=== PATIENT | male | born 1960 | race Caucasian/White ===

== ENCOUNTER 2018-01-05 11:59 | Emergency (ER) | payer MEDICAID, OTHER ==
[2018-01-05 12:11] VITALS: BP 138/81
--- NOTE | 2018-01-05 13:58 | XRay Report ---
AP ABDOMEN: HISTORY: Swallowed tooth. The abdominal gas pattern is unremarkable. No masses or organomegaly is identified and there is no gross evidence of free air or fluid. No significant soft tissue calcifications are noted. There is a curvilinear density in the right lower quadrant overlying the right iliac bone. The etiology of this is unclear. It does not necessarily resemble a tooth. Please correlate with the image. IMPRESSION: Unremarkable abdomen. Right lower quadrant density as described.
--- NOTE | 2018-01-05 13:59 | XRay Report ---
AP CHEST: HISTORY: Swallowed tooth No radiopaque foreign body is identified in the chest. There is an ill-defined 2.5 cm density in the right upper lobe concerning for mass or nodule. The lungs are mildly hyperinflated but clear otherwise. Normal heart and mediastinal structures. IMPRESSION: 2.5 cm right upper lobe density/mass. Further evaluation with CT chest with contrast is recommended.
--- NOTE | 2018-01-05 15:07 | Emergency Department Report ---
- General Chief complaint: Skin/Abscess/Foreign Body Stated complaint: swolled tooth Time Seen by Provider: 01/05/18 13:29 Source: patient Mode of arrival: Ambulatory Limitations: No Limitations - History of Present Illness Initial comments: This is a 57-year-old male here report that he swallowed a false tooth. He denies any abdominal or back pain. Denies vomiting. Denies any shortness of breath or chest pain. Denies any nausea or vomiting. Pain is 0 out of 10. MD complaint: foreign body -: This morning Tetanus Up to Date: yes Severity scale (0 -10): 0 Associated symptoms: denies other symptoms Treatments Prior to Arrival: none - Related Data Home Medications Medication Instructions Recorded Confirmed Last Taken No Known Home Medications [No 05/17/13 05/17/13 Unknown Reported Home Medications] Allergies Allergy/AdvReac Type Severity Reaction Status Date / Time No Known Allergies Allergy Verified 05/17/13 09:04 Abscess Boil HPI - [facility] Chief Complaint: Skin/Abscess/Foreign Body Stated Complaint: swolled tooth Time Seen by Provider: 01/05/18 13:29 Home Medications: Home Medications Medication Instructions Recorded Confirmed Last Taken No Known Home Medications [No 05/17/13 05/17/13 Unknown Reported Home Medications] Allergies/Adverse Reactions: Allergies Allergy/AdvReac Type Severity Reaction Status Date / Time No Known Allergies Allergy Verified 05/17/13 09:04 ED Review of Systems ROS: Stated complaint: swolled tooth Other details as noted in HPI Constitutional: denies: chills, fever Eyes: denies: eye pain ENT: denies: ear pain, throat pain, congestion Respiratory: denies: cough, shortness of breath, SOB with exertion, SOB at rest , wheezing Cardiovascular: denies: chest pain, palpitations, edema, syncope Gastrointestinal: denies: abdominal pain, nausea, vomiting, diarrhea, constipation, hematemesis, melena, hematochezia Genitourinary: denies: urgency, dysuria Musculoskeletal: denies: back pain, joint swelling, arthralgia, myalgia Skin: denies: rash, lesions Neurological: denies: headache Psychiatric: denies: anxiety, depression ED Past Medical Hx - Past Medical History Previous Medical History?: Yes Hx Liver Disease: Yes Additional medical history: Abnormal lung findings-patient cannot elaborate - Surgical History Past Surgical History?: No - Family History Family history: hypertension - Social History Smoking Status: Current Every Day Smoker Substance Use Type: Alcohol - Medications Home Medications: Home Medications Medication Instructions Recorded Confirmed Last Taken Type No Known Home Medications [No 05/17/13 05/17/13 Unknown History Reported Home Medications] ED Physical Exam - General Limitations: No Limitations General appearance: alert, in no apparent distress - Head Head exam: Present: atraumatic, normocephalic, normal inspection - Eye Eye exam: Present: normal appearance, PERRL, EOMI Pupils: Present: normal accommodation - ENT ENT exam: Present: normal exam, normal orophraynx, mucous membranes moist, TM's normal bilaterally, normal external ear exam, other (the midline and oral airways patent) - Neck Neck exam: Present: normal inspection, full ROM, other (no C-spine tenderness or tracheal deviation). Absent: tenderness, lymphadenopathy - Respiratory Respiratory exam: Present: normal lung sounds bilaterally. Absent: respiratory distress, chest wall tenderness - Cardiovascular Cardiovascular Exam: Present: regular rate, normal rhythm, normal heart sounds. Absent: systolic murmur, diastolic murmur - GI/Abdominal GI/Abdominal exam: Present: soft, normal bowel sounds. Absent: distended, tenderness, guarding, rebound, rigid, organomegaly, mass, bruit, pulsatile mass , hernia - Rectal Rectal exam: Present: deferred - Extremities Exam Extremities exam: Present: normal inspection, full ROM, normal capillary refill , other (no clubbing, cyanosis or edema. +2 pulses to all extremities). Absent : tenderness, pedal edema, joint swelling, calf tenderness - Back Exam Back exam: Present: normal inspection, full ROM, other (ambulates without any difficulties). Absent: tenderness, CVA tenderness (R), CVA tenderness (L), muscle spasm, paraspinal tenderness, vertebral tenderness, rash noted - Neurological Exam Neurological exam: Present: alert, oriented X3, normal gait - Psychiatric Psychiatric exam: Present: normal affect, normal mood - Skin Skin exam: Present: warm, dry, intact, normal color. Absent: rash ED Course Vital Signs 01/05/18 12:06 Temperature 98.5 F Pulse Rate 74 Respiratory 16 Rate Blood Pressure 138/81 O2 Sat by Pulse 100 Oximetry - Reevaluation(s) Reevaluation #1: 01/05/18 16:02 Stable throughout ED stay Reevaluation #2: 01/05/18 16:23 I discussed the patient is chest x-ray findings and patient said that he had previous x-ray in the past and he told him that he needs to follow up with a lung doctor but he had not. He is aware of x-ray findings for pulmonary nodule to right upper lobe. I also discussed findings for foreign body to abdomen. Patient said it was a false tooth that was white that had a full on the tooth. X-ray shows small focal like foreign body in colon but no tooth seen. Suspect because tooth is white in color. Reevaluation #3: 01/05/18 16:47 Spoke with patient regarding his abnormal x-ray and also abdominal x-ray findings. ED Medical Decision Making - Radiology Data Radiology results: report reviewed Patient: DAVIAN EPPS MR#: [id number] : 1960 Acct:[id number] Age/Sex: 57 / M ADM Date: 01/05/18 Loc: ED Attending Dr: Ordering Physician: AMELIA LOVE Date of Service: 01/05/18 Procedure(s): XR abdomen 1V ap Accession Number(s): [id number] cc: AMELIA LOVE Fluoro Time In Minutes: AP ABDOMEN: HISTORY: Swallowed tooth. The abdominal gas pattern is unremarkable. No masses or organomegaly is identified and there is no gross evidence of free air or fluid. No significant soft tissue calcifications are noted. There is a curvilinear density in the right lower quadrant overlying the right iliac bone. The etiology of this is unclear. It does not necessarily resemble a tooth. Please correlate with the image. IMPRESSION: Unremarkable abdomen. Right lower quadrant density as described. Transcribed By: TTR Dictated By: SOFIE GLEASON JR, MD Electronically Authenticated By: SOFIE GLEASON JR, MD Signed Date/Time: 01/05/18 1335 DD/ 1334 TD/TT: 01/05/18 1335 Patient: DAVIAN EPPS MR#: [id number] : 1960 Acct:[id number] Age/Sex: 57 / M ADM Date: 01/05/18 Loc: ED Attending Dr: Ordering Physician: AMELIA LOVE Date of Service: 01/05/18 Procedure(s): XR chest 1V ap Accession Number(s): [id number] cc: AMELIA LOVE Fluoro Time In Minutes: AP CHEST: HISTORY: Swallowed tooth No radiopaque foreign body is identified in the chest. There is an ill-defined 2.5 cm density in the right upper lobe concerning for mass or nodule. The lungs are mildly hyperinflated but clear otherwise. Normal heart and mediastinal structures. IMPRESSION: 2.5 cm right upper lobe density/mass. Further evaluation with CT chest with contrast is recommended. Transcribed By: TTR Dictated By: SOFIE GLEASON JR, MD Electronically Authenticated By: SOFIE GLEASON JR, MD Signed Date/Time: 01/05/181335 DD/ 34 TD/TT: 01/05/181335 - Medical Decision Making This is a 57-year-old male here report that he swallowed a false tooth and easier to be examined. Patient is not having any abdominal or back pain. He does not have any nausea or vomiting. Denies any blood in his sputum or blood in his stool. This happened today per patient's. I saw and examined patient and abdominal, back, mouth and chest exam is normal. X-ray 2 view abdomen and two-view chest done and dictated by radiologist. Reports reviewed by myself. I discussed x-ray report with patient and also abdominal x-ray. He voiced understanding. He also understands that he needs to follow-up with pulmonary doctor regarding abnormal findings on x-ray for right pulmonary nodule. I discussed with him that he needs to increase his fluid intake and eat foods high in fiber to help flush foreign body out of his colon. He voiced understanding. Educated patient on diagnosis, treatment plan and need to follow-up with pulmonary doctor regarding in abnormal x-ray findings for nodule to right lung field. I also discussed them that there is a radiopaque object in his right colon and he will need to monitor his stool to see if he has any bleeding in his stool or fevers vomiting blood to return to the emergency room KARLOS otherwise to follow up with optical instrument specialist. I encouraged him to eat high fiber food and drink plenty of water. He voiced understanding and Patient with ingestion of foreign body-seen on x-ray of the abdomen 2 view and large intestine. Pt encouraged to eat a high-fiber food and to return to the emergency room if he has any bleeding from his rectum or vomiting. Urged to follow optical instrument specialist. 2: I pulmonary nodule -encouraged to follow up with process automation engineer patient already aware that he had that but he just didn't follow up encouraged smoking cessation.- Pt discharged home in stable condition. Vital signs are stable with a febrile. He is to follow-up with yesterday urologist, process automation engineer and his primary care physician which she does have . Critical care attestation.: If time is entered above; I have spent that time in minutes in the direct care of this critically ill patient, excluding procedure time. ED Disposition Clinical Impression: Pulmonary nodule Ingestion of foreign body Qualifiers: Encounter type: initial encounter Qualified Code(s): T18.9XXA - Foreign body of alimentary tract, part unspecified, initial encounter Disposition: DC- TO HOME OR SELFCARE Is pt being admited?: No Does the pt Need Aspirin: No Condition: Stable Instructions: Foreign Body Ingestion (ED), Pulmonary Nodules (ED) Additional Instructions: Alana muniz lng xem h??ng d?n x? ?? gi?i thi?u ??n bc s? ph?i v m?t s? bc s?. Xem bc s? ch?m sc chnh c?a b?n nikkie 2 ngy T?ng l??ng ch?t l?ng c?a b?n v c?ng c ch?t x? ?? kala g?m posada?i, to. ng c?ng c th? u?ng n??c m?n ?m ?? gip t?o ?i?u ki?n terrance?n ??ng c?a c? th? n? ?c ngoi ra m?t vi trng. Hy ng?ng ht farnaz?c. X tonja c?a b?n cho th?y b?n c t?n th??ng b?t th??ng ? ph?i ph?i v b?n c?n elisa di bc s? ph?i ?? ?nh gi v ?i?u tr? thm N?u b?n pht tri?n ch?y mu tr?c trng ho?c ch?y mu t? s? ti?n, t?ng ?au b?ng, tr? l?i phng c?p c?u cng s?m cng t?t Please see discharge instruction for referral to lung doctor and somewhat doctor. See Your primary care physician in 2 days Increase your fluid intake and also fiber to include bananas, apples. He can also drink warm prune juice to help to facilitate movement of foreign body out a few colon. Please stop smoking. Your x-ray shows that you have abnormal lesion in your right lung and you need to follow up with a lung doctor for further evaluation and treatment If you develop rectal bleeding or bleeding from the amounts, increase in abdominal pain, return to the emergency room [facility]OS Referrals: PRIMARY MD GAURI [Primary Care Provider] - 01/07/18 [facility] [Provider Group] - 01/07/18 ARYA WILLIS MD [Staff Physician] - 01/07/18 Forms: Work/School Release Form(ED), Accompanied Note
== END 2018-01-05 17:18 | disposition home or self-care (01) ==
LOC: ED 11:59
DX: T18.9XXA Foreign body of alimentary tract, part unspecified, initial encounter (principal); R91.1 Solitary pulmonary nodule; F17.200 Nicotine dependence, unspecified, uncomplicated; X58.XXXA Exposure to other specified factors, initial encounter; Y93.89 Activity, other specified; Y92.89 Other specified places as the place of occurrence of the external cause; Y99.8 Other external cause status
CPT/HCPCS: 71045; 74018; 99283

== ENCOUNTER 2018-02-08 08:32 | Day surgery (SDC) | payer OTHER ==
[2018-02-08 09:52] LABS: Basophils % (Auto) 0.4 % (0.0-1.8); Eosinophils # (Auto) 0.2 K/mm3 (0.0-0.4); Eosinophils % (Auto) 2.7 % (0.0-4.3); Hematocrit 42.9 % (35.5-45.6); Hemoglobin 14.5 gm/dl (11.8-15.2); Lymphocytes # (Auto) 1.7 K/mm3 (1.2-5.4); Lymphocytes % (Auto) 25.5 % (13.4-35.0); Mean Corpuscular HGB Conc 34 % (32-34); Mean Corpuscular Hemoglobin 31 pg (28-32); Mean Corpuscular Volume 93 fl (84-94); Monocytes # (Auto) 0.7 K/mm3 (0.0-0.8); Monocytes % (Auto) 9.9 % (0.0-7.3); Platelet Count 203 K/mm3 (140-440); Red Blood Count 4.61 M/mm3 (3.65-5.03)
[2018-02-08 10:07] LABS: Alanine Aminotransferase 24 units/L (7-56); Albumin 4.1 g/dL (3.9-5); BUN/Creatinine Ratio 23; Blood Urea Nitrogen 14 mg/dL (9-20); Calcium 8.9 mg/dL (8.4-10.2); Hemolysis Index 9
[2018-02-08 10:39] LABS: INR 0.88 (0.87-1.13)
[2018-02-08] MEDS ORDERED: VERSED IV ONE (11:00)
[2018-02-08] MEDS ORDERED: SUBLIMAZE IV ONE (11:00)
[2018-02-08] MEDS ORDERED: XYLOCAINE 1% 20 mL ONE (11:17)
--- NOTE | 2018-02-08 13:27 | Cat Scan Report ---
CT BIOPSY LUNG RIGHT History: Right lung mass. Description of procedure: Informed consent was obtained. Sterile technique was utilized. 1% lidocaine for skin anesthesia. Moderate sedation was accomplished with Versed and fentanyl. The patient was sedated for 15 minutes. Independent cardiorespiratory monitoring by RN. Intraobserver time of [address] guidance, a 19-gauge introducer needle was in to the leading edge of a 1.9 cm mass in the posterior right upper lobe. 4 separate 2.2 cm 20-gauge core biopsies were obtained. The samples were deemed adequate by the pathologist on site. Postbiopsy scan demonstrated no evidence for pneumothorax. The patient tolerated the procedure without difficulty. Impression: Successful CT-guided biopsy of a 1.9 cm right upper lobe mass.
[2018-02-08 13:59] VITALS: BP 108/81
--- NOTE | 2018-02-08 14:33 | XRay Report ---
AP CHEST: HISTORY: Right upper lobe lung mass, recent CT-guided biopsy Recent CT-guided biopsy of an approximate 2 cm right upper lobe mass was performed. There is no evidence for pneumothorax. Right upper lobe mass is unchanged. The lungs are clear otherwise. Normal heart and mediastinal structures. IMPRESSION: No evidence for pneumothorax.
== END 2018-02-08 15:30 | disposition home or self-care (01) ==
LOC: CATHLABREC 08:32 → EDSTATUS 09:00 → CATHLABREC 15:30
PROVIDERS: ATTEND Internal Medicine
DX: J18.9 Pneumonia, unspecified organism (principal); Z79.899 Other long term (current) drug therapy; Z79.891 Long term (current) use of opiate analgesic; Z87.891 Personal history of nicotine dependence; Z82.49 Family history of ischemic heart disease and other diseases of the circulatory system; Z83.3 Family history of diabetes mellitus; Z79.01 Long term (current) use of anticoagulants; Z83.6 Family history of other diseases of the respiratory system
CPT/HCPCS: 32405; 36415; 71045; 77012; 80053; 85025; 85610; 85730; 88305; 88312; J2250; J3010; Q9967; 88172; 88173

== ENCOUNTER 2018-03-07 09:51 | Outpatient (CLI) | payer OTHER ==
[2018-03-07] MEDS ORDERED: PROVENTIL IH ONE (11:30)
--- NOTE | 2018-03-09 00:38 | Pulmonary Function Test ---
SPIROMETRY: FVC 4.28 liters, which is 100% of predicted. FEV1 is 3.11 liters, which is 92% of the predicted. FEV1/FVC ratio is 73. Flow volume LOOP: FEF 25-75% is 1.91, 65% of the predicted. The MVV is 73% of the predicted. Lung volumes, TLC 5.64, which is 81% of predicted. ERV 1.79, which is 215% of predicted and FRC 3.69, which is 103% of predicted. DLCO is 86% of the predicted. IMPRESSION: Very early obstructive ventilatory impairment as evidenced by decrease in the FEF 25-75%, 71% post-bronchodilators. There is a significant improvement in FEF 25-75%. JOB# [id number] KARISHMA/NERY
== END 2018-03-07 09:52 | disposition home or self-care (01) ==
LOC: PF 09:51
PROVIDERS: ATTEND Internal Medicine
DX: R19.01 Right upper quadrant abdominal swelling, mass and lump (principal); J43.9 Emphysema, unspecified; Z87.891 Personal history of nicotine dependence
CPT/HCPCS: 36600; 82803; 94060; 94640; 94727; 94729

== ENCOUNTER 2018-03-24 09:23 | Outpatient (CLI) | payer OTHER ==
--- NOTE | 2018-03-25 09:46 | PET Report ---
PET/CT:03/24/18 09:23:00 CLINICAL: Right upper lobe lung mass. Status post CT guided lung biopsy 02/08/18 with benign pathology. The pathology report describes reactive bronchial epithelial cells, macrophages, chronic inflammatory cells and a few granulomata. RADIOPHARMACEUTICAL: 12.67mCi F18-FDG. COMPARISON: None. TECHNIQUE- Following intravenous injection of F-18 FDG and an approximately 60 minute uptake period, CT and PET images from the mid skull to the upper thighs were acquired with the patient in the fasted state. No contrast was administered. The CT protocol used for this PET CT study is designed for attenuation correction and anatomic localization of PET abnormalities. This sr risk management consultant CT is not desired to produce and cannot replace, [id number]-zy-[id number]-art diagnostic CT scans with specific imaging protocols for different body parts and indications. Plasma glucose at the time of this test: 93g/dl. The standardized uptake values (SUV) are normalized to patient body weight and indicate the highest activity concentration (SUV max) in a given disease site. FINDINGS: Brain--Physiologic FDG uptake in the visualized regions of the brain. Neck--Physiologic FDG uptake . Chest--Physiologic FDG uptake in mediastinal blood pool and myocardium. Lungs--An irregular posterior segment right upper lobe mass measures 1.7 x 1.5 cm image 87, series 1. It demonstrates mild FDG uptake with SUV 2.5. The mass is contiguous to benign right upper lobe scar there is a 4 mm calcified granuloma associate with a scar. No other lung mass or nodule. Pleura/pericardium--No abnormal uptake. Thoracic nodes--No abnormal uptake. Hepatobiliary--No abnormal uptake. Liver background SUV mean, as a reference for comparing FDG studies, is 3.4 . An 8mm non-FDG avid hypodensity of the anterior aspect of the medial segment of the left lobe of the liver is probably a benign cyst. Spleen--No abnormal uptake. Pancreas--No abnormal uptake. Adrenal Glands--No abnormal uptake and no mass. Kidneys/Ureters/Bladder--No abnormal uptake. Abdominopelvic Nodes--No abnormal uptake. Bowel/Peritoneum/Mesentery--No abnormal uptake. Pelvic organs--No abnormal uptake. Bones/Soft Tissues--No abnormal uptake and no suspicious bone lesions. IMPRESSION- 1. A 1.7 cm right upper lobe lung mass with mild FDG uptake. The uptake pattern is nonspecific and is compatible with either either benign or malignant disease. Recommend CT followup. 2. Old granulomatous disease with right upper lobe scar and a 4 mm calcified granuloma. 3. 8mm left hepatic hypodensity which is probably a benign cyst. Recommend CT followup.
== END 2018-03-24 09:24 | disposition home or self-care (01) ==
LOC: PET 09:23
PROVIDERS: ATTEND Internal Medicine
DX: R91.8 Other nonspecific abnormal finding of lung field (principal); J43.9 Emphysema, unspecified; Z87.891 Personal history of nicotine dependence
CPT/HCPCS: 78815; 82962; A9552